=== PATIENT | male | born 1980 | race Hispanic/Latino ===

== ENCOUNTER 2016-10-08 17:08 | Emergency (ER) | payer SELFPAY ==
[~2016-10-08] VITALS: Ht 177.8 cm; Wt 70.5 kg
[2016-10-08 17:24] VITALS: BP 137/96; PULSE 72; O2SAT 99
[2016-10-08 18:07] LABS: BASOPHILS % (AUTO) 0.4 % (0-3)
[2016-10-08 18:10] LABS: EOSINOPHILS % (AUTO) 2.8 % (0-5); Mean Corpuscular Hemoglobin 31.7 pg (27.0-35.0); Mean Corpuscular Volume 85.6 fL (81-100); NEUTROPHILS % (AUTO) 51.7 % (40-74); Platelet Count 199 bil/L (150-400)
[2016-10-08 18:33] VITALS: BP 124/81; PULSE 79; RESP 15; O2SAT 96
--- NOTE | 2016-10-08 18:35 | ED.REPORT ---
HPI-Altered Mental Status Date of Service Oct 08, 2016 ED Provider: Jose Juan Menchaca MD This is a 36-year-old male with unknown past medical history who presents to the emergency department for change in mental status. Patient is a poor historian. Patient believes there is "bleeding in my head." He is currently having a left-sided headache with right eye pain, blurry vision, photosensitivity, and flushing. He mentions four days ago he was in [place] at a constitution party and reportedly to several unknown pills and was binge drinking and reportedly passed out. He was seen in the hospital in [place], [place] where in his urine drug screen opiates were found. It is unknown the treatment he had but was reportedly there for a day. He reportedly went to another hospital afterwards and he mentions they did not admit him. His brother is here with him and has noticed he has poor thought process and concentration compared to when he last spoke with him last month. Patient denies any drug use prior to this. He reports drinking alcohol couple times a week. He denies any history of seizures. 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 He reports having a poor appetite and dry heaving. Denies chest pain, shortness of breath, abdominal pain, diarrhea. Nursing Notes Stated Complaint: CHANGE IN MENTAL STATUS Chief Complaint: Neuro Symptoms/ Deficits Nursing Notes Reviewed: Yes Allergies: Coded Allergies: No Known Allergies (Unverified Allergy, Unknown, 04/27/06) General Time Seen by MD: 18:00 Chief Complaint Other (change in mental status) Hx Obtained From: Patient, Other family... (brother) Sudden in Onset?: Yes Onset Occurred: 4 days ago Context of Onset: EtOH use, Illicit drug use Past Medical History Past Medical History Reported traumatic brain injury for 4-5 years prior. Past Surgical History None Smoking History Light Tobacco Smoker (1 pack every 3 months) Social History Lives in [place] Alcohol Use: 1-3 per week Review of Systems Constitutional: Denies: Chills, Fever Eyes: Reports: Blurred bilateral, Photophobia Respiratory: Denies: Shortness of breath Cardiovascular: Denies: Chest pain GI: Reports: Nausea, Vomiting (dry heaves), Denies: Abdominal pain, Diarrhea Neurologic: Reports: Dizziness, Headache, Problem walking, Weakness, Denies: Seizure Psychiatric: Reports: Change mental status, Denies: Hallucinations, auditory, Hallucinations, visual Complete sys rev & neg: except as marked. Physical Exam Initial Vital Signs Vital Signs (First) Date Time Temp Pulse Resp B/P Pulse Ox O2 Delivery O2 Flow Rate FiO2 10/08/16 17:24 36.9 72 137/96 99 Room Air 10/08/16 18:33 15 Initial VS: Reviewed ENT: Mucous membranes moist Abdomen / GI: Soft, Non-tender, No guarding, No rebound, No distention Back: No CVA tenderness Respiratory / Chest: Breath sounds NL, Breath sounds = bilat Neurologic: Oriented X3, CN II - XII intact Speech: Positive: Slow Slightly dilated pupils with minimal response to light, pupils equal and round. Sclera Anicteric, conjunctiva normal. EOMI Interpretation & Diagnostics Interpretation & Diagnostics: mildly decreased K, not thought clinically significant. Lab Results Interpretation Result Diagram: 10/08/16 1803 10/08/16 1803 Test 10/08/16 18:03 10/08/16 18:04 10/08/16 18:45 White Blood Count 5.7th/mm3 (3.8-10.1) Red Blood Count 4.99mil/mm3 (4.40-5.80) Hemoglobin 15.8g/dL (13.8-17.2) Hematocrit 42.7% (41.0-50.0) Mean Corpuscular Volume 85.6fL (81-100) Mean Corpuscular Hemoglobin 31.7pg (27.0-35.0) Mean Corpuscular Hemoglobin Concent 37.0% (32.0-37.0) Red Cell Distribution Width 11.6% (12.3-15.4) Platelet Count 199bil/L (150-400) Neutrophils (%) (Auto) 51.7% (40-74) Lymphocytes (%) (Auto) 32.9% (14-46) Monocytes (%) (Auto) 12.0% (4-12) Eosinophils (%) (Auto) 2.8% (0-5) Basophils (%) (Auto) 0.4% (0-3) Sodium Level 139mEq/L (134-144) Potassium Level 3.0mEq/L (3.5-5.2) Chloride Level 95mEq/L (97-108) Carbon Dioxide Level 29mmol/L (18-29) Blood Urea Nitrogen 7mg/dL (6-20) Creatinine 0.74mg/dL (0.76-1.27) Estimat Glomerular Filtration Rate 129mL/min (>59) Glucose Level 121mg/dL (60-99) Calcium Level 9.7mg/dL (8.5-10.1) Total Bilirubin 1.6mg/dL (0.0-1.2) Aspartate Amino Transf (AST/SGOT) 37U/L (0-50) Alanine Aminotransferase (ALT/SGPT) 24U/L (0-44) Alkaline Phosphatase 61U/L (25-150) Total Protein 7.7g/dL (6.4-8.4) Albumin 4.9g/dL (3.4-5.0) Hold Uriostegui Top Tube Received (Received) Urine Color Yellow (YELLOW) Urine Appearance Clear (CLEAR,HAZY) Urine pH 6.5 (5.0-8.0) Urine Specific Abernathy <1.005 (1.003-1.035) Urine Protein Negativemg/dL (NEG,TRACE) Urine Glucose (UA) Negativemg/dL (NEGATIVE) Urine Ketones Negativemg/dL (NEGATIVE) Urine Occult Blood Negative (NEGATIVE) Urine Nitrite Negative (NEGATIVE) Urine Bilirubin Negative (NEGATIVE) Urine Urobilinogen Normalmg/dL (NORMAL) Urine Leukocyte Esterase Negative (NEGATIVE) Urine RBC 0-2/hpf (0-2) Urine WBC 0-5/hpf (0-5) Urine Epithelial Cells Occasional/hpf (NONE-MOD) Urine Crystals None seen (NONE SEEN) Urine Bacteria None/hpf (NONE-FEW) Urine Hyaline Casts None/lpf (NONE) Urine Granular Casts None seen (NONE SEEN) Urine Waxy Casts None seen (NONE SEEN) Urine Red Blood Cell Casts None seen (NONE SEEN) Urine White Blood Cell Casts None seen (NONE SEEN) Urine Mucus None seen (None Seen) Urine Trichomonas None seen (NONE SEEN) Urine Yeast None (NONE SEEN) Urinalysis Comment None Urine Culture Reflexed Not indicated Re-Eval/Medical Decision Med Decision/Clinical Course This is a 36-year-old male with reported history of traumatic brain injury who presents to the ED stating he has internal head bleeding. Patient is a poor historian and unable to explain why. He has had drug use 4 days prior with unknown pills and excessive alcohol. On exam he has poor thought process with slow responses. His pupils are dilated and minimally responsive to light. There is low suspicion of stroke however needed to be ruled out. Likely cause is secondary to drug intake 4 days prior. Urine drug screen is positive for opiates, oxycodone, marijuana. Breathalyzer is negative. CBC was unremarkable , CMP showed potassium of 3.0. Head CT shows no acute intracranial abnormalities. Records were obtained from [facility] in [place]. While he was there, it was thought that he had altered mental status secondary to alcohol intoxication and narcotic overdose. At this time, he likely has acute stress reaction. No evidence of any emergent process going on at this time. Patient Discharge & Departure Impression: Primary Impression: Acute stress reaction Disposition: Home Discharge Condition All VS Reviewed: Yes Condition: Stable Additional Instructions: Schedule an appointment with Dr. Zena Cruz. Try to see her within 1-2 weeks if possible. Avoid any drug or alcohol use. Referrals: Zena Cruz MD copies to: Zena Cruz MD, Malik A DO Oct 08, 2016 18:35 Jose Juan Menchaca MD Oct 08, 2016 22:48
[2016-10-08 19:16] LABS: APPEARANCE,URINE CLEAR (CLEAR,HAZY); COLOR,URINE YELLOW (YELLOW); OCCULT BLOOD,URINE NEGATIVE (NEGATIVE); PH,URINE 6.5 (5.0-8.0); UROBILINOGEN,URINE NORMAL (NORMAL)
--- NOTE | 2016-10-08 19:37 | DRSVH ---
PROCEDURE: CT BRAIN WITHOUT CONTRAST ([id number]) INDICATIONS: change in mental status TECHNIQUE: Noncontrast 4.5 mm thick angled axial sections acquired from the foramen magnum to the vertex, with c oronal reformats. COMPARISON: None. FINDINGS: Image quality: Excellent. CSF spaces: Basal cisterns are patent. No extra-axial fluid collections. Ventricles are normal in size and shape. Brain: No midline shift. No intracranial masses or hemorrhage. Parkinson-white matter interface is norm al. Skull and face: Calvarium and visualized facial bones are intact, without suspicious lesions. Sinuses: Visualized sinuses and mastoids are clear. IMPRESSION: No abnormality found. Dictated by: Adam John M.D. on 10/08/2016 at 19:35 Approved by: Adam John M.D. on 10/08/2016 at 19:35
[2016-10-08 21:04] VITALS: BP 129/84; PULSE 66; RESP 13; O2SAT 94
[2016-10-08 22:12] VITALS: BP 125/82; PULSE 62; RESP 14; O2SAT 96
== END 2016-10-08 22:13 | disposition home or self-care (01) ==
LOC: SED 17:08
DX: F43.0 Acute stress reaction (principal); R51 Headache; H57.11 Ocular pain, right eye

== ENCOUNTER 2016-10-10 05:27 | Emergency (ER) | payer OTHER ==
[~2016-10-10] VITALS: Ht 175.3 cm; Wt 63.6 kg
[2016-10-10 05:30] VITALS: BP 145/103; PULSE 78; RESP 18; O2SAT 98
[2016-10-10 05:58] LABS: BASOPHILS % (AUTO) 0.6 % (0-3); EOSINOPHILS % (AUTO) 6.3 % (0-5); MONOCYTES % (AUTO) 11.9 % (4-12); Mean Corpuscular Hemoglobin 31.7 pg (27.0-35.0); Mean Corpuscular Volume 86.9 fL (81-100); NEUTROPHILS % (AUTO) 34.9 % (40-74); Platelet Count 231 bil/L (150-400)
--- NOTE | 2016-10-10 06:04 | ED.REPORT ---
HPI-Abd Pain M Under 42 Date of Service Oct 10, 2016 ED Provider: Lester Huston DO Pt is a 36 year old male with a history of anxiety who presents to the ED complaining of abdominal pain onset three days ago. He describes the pain as a "burning" feeling that he rates a 9/10 in severity when exacerbated by pressure on his abdomen. Pt c/o associated nausea, vomiting, constipation and diaphoresis. He states he normally has bowel movements once a day, but has not had a bowel movement in a few days now. The pt was able to sleep last night by using Benadryl, but began experiencing severe abdominal pain at 04:00 after waking and eating at 00:00. Nursing Notes Stated Complaint: STOMACH PAIN Chief Complaint: Male Abdominal Pain Nursing Notes Reviewed: Yes Allergies: Coded Allergies: No Known Allergies (Unverified , 10/10/16) General Time Seen by MD: 06:03 Chief Complaint Abdominal pain Hx Obtained From: Patient Arrived By: Walk-in Sudden in Onset?: No Onset Occurred: 3 days ago Symptom Duration: Since onset Progression since Onset: Gradually worsening Location: : Diffuse Quality: Burning, Painful Severity: Maximum: Pain level 9 out of 10 Recent Healthcare: No recent hospitalization, Recent doctor visit Similar Sx Previous: Yes Past Medical History Past Medical History Reported traumatic brain injury for 4-5 years prior. Anxiety Reports: Depression Past Surgical History None reported Smoking History Light Tobacco Smoker Social History Alcohol Use: 1-3 per week Ambulatory Status Independent Review of Systems Constitutional: Denies: Chills Respiratory: Denies: Non-productive cough, Shortness of breath Cardiovascular: Denies: Chest pain GI: Reports: Abdominal pain, Constipation, Nausea, Vomiting Musculoskeletal: Denies: Back pain, Neck pain Complete sys rev & neg: except as marked. Skin: Reports Diaphoresis, Denies Rash Physical Exam Initial Vital Signs Vital Signs (First) Date Time Temp Pulse Resp B/P Pulse Ox O2 Delivery O2 Flow Rate FiO2 10/10/16 05:30 36.6 78 18 145/103 98 Room Air Initial VS: Reviewed General/Constitutional: Awake, Alert Respiratory / Chest: Atraumatic, Breath sounds NL, Breath sounds = bilat, No respiratory distress Cardiovascular: Heart rate NL, Regular rhythm, Heart sounds NL, No murmurs Abdomen: Soft, No distention Tenderness/Guarding/Rebound: Positive: Guarding involuntary (LUQ, RLQ, epigastric area), Tender LUQ..., Tender RLQ..., Tender epigastric Back: Atraumatic, Full range of motion Head / Eyes: Atraumatic, Normocephalic, PERRL, EOMI ENT: Atraumatic, Airway patent, Mucous membranes moist Neurologic: Oriented X3, Speech NL, No motor deficits, No sensory deficits Neck: Atraumatic, Supple, Full range of motion Upper Extremity / MS: Atraumatic, Inspection NL, Full range of motion Lower Extremity / Pelvis / MS: Atraumatic, Inspection NL, Full range of motion Skin: Atraumatic, Color NL, No rash, Warm Psychiatric: Affect NL, Mood NL Interpretation & Diagnostics Lab Results Interpretation Result Diagram: 10/10/16 0540 10/10/16 0540 Test 10/10/16 05:40 10/10/16 09:30 White Blood Count 6.2th/mm3 (3.8-10.1) Red Blood Count 5.33mil/mm3 (4.40-5.80) Hemoglobin 16.9g/dL (13.8-17.2) Hematocrit 46.3% (41.0-50.0) Mean Corpuscular Volume 86.9fL (81-100) Mean Corpuscular Hemoglobin 31.7pg (27.0-35.0) Mean Corpuscular Hemoglobin Concent 36.5% (32.0-37.0) Red Cell Distribution Width 11.6% (12.3-15.4) Platelet Count 231bil/L (150-400) Neutrophils (%) (Auto) 34.9% (40-74) Lymphocytes (%) (Auto) 46.0% (14-46) Monocytes (%) (Auto) 11.9% (4-12) Eosinophils (%) (Auto) 6.3% (0-5) Basophils (%) (Auto) 0.6% (0-3) Hold Purple Top Tube Received (Received) Hold Blue Top Tube Received (Received) Sodium Level 139mEq/L (134-144) Potassium Level 3.7mEq/L (3.5-5.2) Chloride Level 97mEq/L (97-108) Carbon Dioxide Level 29mmol/L (18-29) Blood Urea Nitrogen 10mg/dL (6-20) Creatinine 0.74mg/dL (0.76-1.27) Estimat Glomerular Filtration Rate 129mL/min (>59) Glucose Level 118mg/dL (60-99) Calcium Level 9.5mg/dL (8.5-10.1) Magnesium Level 2.2mg/dL (1.6-2.6) Total Bilirubin 0.7mg/dL (0.0-1.2) Aspartate Amino Transf (AST/SGOT) 26U/L (0-50) Alanine Aminotransferase (ALT/SGPT) 23U/L (0-44) Alkaline Phosphatase 66U/L (25-150) Total Protein 7.8g/dL (6.4-8.4) Albumin 4.8g/dL (3.4-5.0) Lipase 20U/L (13-60) Hold Aurora Top Tube Received (Received) Hold Uriostegui Top Tube Received (Received) Urine Color Yellow (YELLOW) Urine Appearance Clear (CLEAR,HAZY) Urine pH 7.5 (5.0-8.0) Urine Specific Kincaid 1.015 (1.003-1.035) Urine Protein Negativemg/dL (NEG,TRACE) Urine Glucose (UA) Negativemg/dL (NEGATIVE) Urine Ketones Negativemg/dL (NEGATIVE) Urine Occult Blood Negative (NEGATIVE) Urine Nitrite Negative (NEGATIVE) Urine Bilirubin Negative (NEGATIVE) Urine Urobilinogen Normalmg/dL (NORMAL) Urine Leukocyte Esterase Negative (NEGATIVE) Urine RBC 0-2/hpf (0-2) Urine WBC 0-5/hpf (0-5) Urine Epithelial Cells Few/hpf (NONE-MOD) Urine Crystals Amorphous phosphates Urine Bacteria None/hpf (NONE-FEW) Urine Hyaline Casts None/lpf (NONE) Urine Granular Casts None seen (NONE SEEN) Urine Waxy Casts None seen (NONE SEEN) Urine Red Blood Cell Casts None seen (NONE SEEN) Urine White Blood Cell Casts None seen (NONE SEEN) Urine Mucus None seen (None Seen) Urine Trichomonas None seen (NONE SEEN) Urine Yeast None (NONE SEEN) Urinalysis Comment None Urine Culture Reflexed Not indicated X-Ray Abdominal Interpretation Significant fecal loading No other acute abnormalities Interpretation / Wet Read by: Wet read ED physician Re-Eval/Medical Decision Med Decision/Clinical Course 36-year-old male presenting with no bowel movement 3 days and diffuse abdominal pain in the setting of normal vitals and normal labs, and abdominal x- ray showing a large amount of fecal loading. Discussed this with the patient and he would like to take the medications home and use than there rather than here in the ER. He is sent home with Dulcolax suppository and magnesium citrate with instructions to return if pain is not improving and he is not able to pass stool after using the medication Source of Hx: Old records Re-Evaluation/Progress : Time of Eval: 08:13 Patient Status: Condition improved Re-Evaluation/Progress Note: Pt rechecked. Discussed all results. Informed pt of plan for discharge pending normal labs. Pt understands and agrees with plan. F/U instructions and RTER warnings given. All questions addressed. Counseled Regarding: Diagnosis, Lab results, Need for follow-up, When/why to return to ED Patient Discharge & Departure Primary Impression: Constipation Constipation type: slow transit constipation Qualified Code: K59.01 - Slow transit constipation Additional Impression: Generalized abdominal pain Discharge Condition All VS Reviewed: Yes Condition: Stable Patient Instructions: Acute Abdominal Pain (ED), Constipation (ED) Additional Instructions: Thank you for trusting us with your care today. There were no dangerous causes identified for your abdominal pain today, however it appears that you are significantly constipated. I recommend that you drink the magnesium citrate and use the Dulcolax suppository when you get home to help relieve your symptoms. Please return to the ER for new or worsening symptoms. Follow-up with your PCP early next week if not better. Referrals: [facility] Scribe Attestation Portions of this note were transcribed by Rose James and Vinnie Padron. I, Dr. Huston personally performed the history, physical exam and medical decision -making; I reviewed and confirmed the accuracy of the information in the transcribed note. copies to: [facility] Lester Huston DO Oct 10, 2016 06:04 Rose James Oct 10, 2016 06:12 VINNIE PADRON Oct 10, 2016 09:31
[2016-10-10 06:11] LABS: Magnesium 2.2 mg/dL (1.6-2.6)
[2016-10-10] MEDS ORDERED: 0.9% Sodium Chloride 1,000 ML IV ONE (06:33)
[2016-10-10 10:38] LABS: APPEARANCE,URINE CLEAR (CLEAR,HAZY); COLOR,URINE YELLOW (YELLOW); OCCULT BLOOD,URINE NEGATIVE (NEGATIVE); PH,URINE 7.5 (5.0-8.0); UROBILINOGEN,URINE NORMAL (NORMAL)
--- NOTE | 2016-10-10 11:34 | DRSVH ---
PROCEDURE: X-RAY ACUTE ABDOMINAL SERIES ([id number]) INDICATIONS: no BM x3 days. Diffuse abd pain TECHNIQUE: One view chest and two views of the abdomen were acquired. COMPARISON: None. FINDINGS: Surgical changes and devices: None. Chest: Lungs are clear. Heart size is normal. No pleural effusions. No pneumoperitoneum. Abdomen: Bowel gas pattern is normal. Large amount of stool in colon. No suspicious calcifications. Visualized solid organ contours appear normal. Bones: No suspicious bony lesions. IMPRESSION: A large amount of stool in colon. Dictated by: Beryl Moe M.D. on 10/10/2016 at 11:32 Approved by: Beryl Moe M.D. on 10/10/2016 at 11:32
== END 2016-10-10 08:48 | disposition home or self-care (01) ==
LOC: SED 05:27
DX: K59.01 Slow transit constipation (principal); F41.9 Anxiety disorder, unspecified; F17.200 Nicotine dependence, unspecified, uncomplicated; Z87.820 Personal history of traumatic brain injury